=== PATIENT | male | born 1975 | race Two or more races ===

== ENCOUNTER → 2020-07-21 | Day surgery (SDC) | payer OTHER ==
[~2020-07-21] MED LIST: ACCU-CHEK COMFORT CURVE STRIP VI ONE; BUPIVACAINE HCL 50 ML ONE; CLINDAMYCIN 900MG IV 50 ML IV ONE; EPINEPHrine HCL 1 MG/1 ML AMP ONE; GLIM2TAB33 PO; GLYCOPYRROLATE 0.2 MG/ML 1ML VIAL ONE; HYDROmorphone HCL 2 MG/ML VL IV PRN; HYDROmorphone HCL 2 MG/ML VL ONE; LISI-706 PO; METF-372 PO; METOCLOPRAMIDE HCL 5MG/ml INJ 2ml VIAL IV PRN; MIDAZOLAM HCL 1MG/1ML-2 ML VIAL ONE; MORPHINE SULFATE 4 MG/ML SYR/VIAL IV PRN; NEOSTIGMINE 1 MG/ML INJ (10mg/10ML VIAL) ONE; ONDANSETRON HCL 4 MG/2 ML VIAL ONE; PROPOFOL 10 MG/ML 20 ML IV ONE; ROCURONIUM 10MG/ML 10ML VIAL IV ONE; SODIUM CHLORIDE LOCK 50 ML ONE; SUCCINYLCHOLINE CHLORIDE 20 MG/ML 10ML VIAL IV ONE; fentaNYL CITRATE 100 MCG/2 ML VL IV PRN; fentaNYL CITRATE 100 MCG/2 ML VL ONE; fentaNYL CITRATE 5 ML ONE
[2020-07-21 14:17] VITALS: BP 115/73
== END | disposition home or self-care (01) ==
LOC: SUR 07:19
PROVIDERS: ATTEND Orthopaedic Surgery Sports Medicine
DX: M75.101 Unspecified rotator cuff tear or rupture of right shoulder, not specified as traumatic (principal); I10 Essential (primary) hypertension; E11.9 Type 2 diabetes mellitus without complications; E66.01 Morbid (severe) obesity due to excess calories; Z88.0 Allergy status to penicillin; Z79.84 Long term (current) use of oral hypoglycemic drugs; Z11.59 Encounter for screening for other viral diseases; Z98.890 Other specified postprocedural states; Z79.899 Other long term (current) drug therapy; Z68.41 Body mass index [BMI] 40.0-44.9, adult
CPT/HCPCS: 29826; 29827; 82962; C1713; J0171; J0330; J1170; J2250; J2405; J2704; J3010; J3490; J7030; J7040; U0003